=== PATIENT | female | born 2000 | race Two or more races ===

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

== ENCOUNTER 2020-03-05 14:23 | Emergency (ER) | payer MEDICAID ==
[~2020-03-05] VITALS: Ht 154.9 cm; Wt 90.8 kg
[2020-03-05 14:25] VITALS: BP 128/62
--- NOTE | 2020-03-05 14:55 | NUR ---
DISCHARGED FROM LOBBY AND EDUCATED ON COVID QUARANTINE UNTIL NEGATIVE TESTING, RETURN IF SYMPTOMS WORSEN (SOB)
== END 2020-03-05 15:00 | disposition home or self-care (01) ==
LOC: ED 14:53
DX: J06.9 Acute upper respiratory infection, unspecified (principal)
CPT/HCPCS: 87635; 99283

== ENCOUNTER 2020-05-25 15:41 | Emergency (ER) | payer BC, MEDICAID ==
[~2020-05-25] VITALS: Ht 154.9 cm; Wt 95.7 kg
[2020-05-25 16:45] LABS: MICROSCOPIC INDICATED
[2020-05-25 16:57] LABS: BASOPHILS % (AUTO) 0 % (0-1); EOSINOPHILS % (AUTO) 0 % (1-7); LYMPHOCYTES % (AUTO) 16 % (22-44); MEAN CORPUSCULAR HEMOGLOBIN 29.5 pg (27.0-34.8); MEAN CORPUSCULAR HGB CONC 34.1 g/dL (32.4-35.8); MEAN PLATELET VOLUME 8.2 fL (7.4-10.4); MONOCYTES % (AUTO) 10 % (2-9); NEUTROPHILS % (AUTO) 74 % (42-75); PLATELET COUNT 245 x10^3/uL (130-400); RED BLOOD COUNT 5.01 x10^6/uL (3.82-5.3); RED CELL DISTRIBUTION WIDTH 13.7 % (9.6-15.2)
--- NOTE | 2020-05-25 17:00 | NUR ---
AUTOMOTIVE SERVICE WRITER: PT TO ROOM FROM LOBBY
[2020-05-25 17:03] LABS: ALBUMIN 3.7 g/dL (3.4-5.0); ANION GAP 6 mmol/L (5-15); CALCIUM 8.7 mg/dL (8.5-10.1); CHLORIDE 111 mmol/L (98-107)
[2020-05-25 17:08] LABS: MD NO
[2020-05-25 17:12] LABS: ALANINE AMINOTRANSFERASE 21 U/L (12-78); ALKALINE PHOSPHATASE 114 U/L (45-117); BILIRUBIN,TOTAL 0.4 mg/dL (0.2-1.0); CREATININE 0.76 mg/dL (0.55-1.02); TOTAL PROTEIN 7.9 g/dL (6.4-8.2)
--- NOTE | 2020-05-25 18:47 | NUR ---
Stood at bedside as director financial planning for US tech during transvaginal US exam which completed at this time. Pt states she is okay and tolerated exam well. VS reassessed and cellphone brought to her per her request. Pt aware of wait for results and MD to come speak with her on those as well as plan of care.
--- NOTE | 2020-05-25 19:06 | NUR ---
Report given to RICK Jean and care transferred.
--- NOTE | 2020-05-25 19:07 | NUR ---
report received from Cydney CABRERA. transfer of care assumed
--- NOTE | 2020-05-25 19:12 | NUR ---
patient sitting up in bed; alert. RN in to introduce myself. patient has no needs at this time. i explained to patient that providers are waiting for US to result and then will have more information on plan of care from this point on. patient satisfied with this plan. safety maintained. will continue to monitor. FLACC 0
--- NOTE | 2020-05-25 20:25 | NUR ---
discharge instructions reviewed with patient. no further questions. no IV placed during this ER visit. steady gait in room. all personal belongings with patient on dc. FLACC 0 on departure
[2020-05-25 20:26] VITALS: BP 109/59
== END 2020-05-25 20:35 | disposition home or self-care (01) ==
LOC: ED 20:25
DX: R10.32 Left lower quadrant pain (principal); R19.7 Diarrhea, unspecified
CPT/HCPCS: 36415; 76830; 80053; 81001; 83690; 84703; 85025; 87086; 99284

== ENCOUNTER 2020-05-26 15:45 | Emergency (ER) | payer OTHER, MEDICAID ==
[~2020-05-26] VITALS: Ht 154.9 cm; Wt 93.7 kg
[2020-05-26 15:49] VITALS: BP 112/68
== END 2020-05-26 16:27 | disposition home or self-care (01) ==
LOC: ED 16:20
DX: U07.1 COVID-19 (principal); B34.9 Viral infection, unspecified; R05 Cough; R09.81 Nasal congestion; R94.31 Abnormal electrocardiogram [ECG] [EKG]
CPT/HCPCS: 93005; 99284; U0003

== ENCOUNTER 2020-06-10 16:04 | Emergency (ER) | payer OTHER, MEDICAID ==
[~2020-06-10] VITALS: Ht 154.9 cm; Wt 94.2 kg
[2020-06-10 16:19] VITALS: BP 120/68
--- NOTE | 2020-06-10 16:44 | NUR ---
PT ENDORSED TO BREAK RN.
--- NOTE | 2020-06-10 16:48 | NUR ---
BREAK RN: PT BROUGHT BACK TO TRIAGE FROM TRIAGE. PT STATED THAT SHE TESTED POSITIVE FOR COVID 19 ON 05/26. PT NEEDS A NOTE FOR EMPLOYER STATING THAT IT IS OK TO GO BACK TO WORK. PT STATED THAT SHE STILL DOES NOT HAVE HER SENSE OF SMELL LEFT, BUT DOES NOT HAVE ANY OTHER SYMPTOMS. MEGHANA ACEVEDO AT BEDSIDE OF COVID SWAB.
--- NOTE | 2020-06-10 17:12 | NUR ---
bREAK rn- DC INSTRUCTIONS REVIEWED
== END 2020-06-10 17:14 | disposition home or self-care (01) ==
LOC: ED 17:05
DX: R43.8 Other disturbances of smell and taste (principal); Z20.822 Contact with and (suspected) exposure to COVID-19
CPT/HCPCS: 99283; U0003

== ENCOUNTER 2020-09-01 15:47 | Emergency (ER) | payer OTHER, MEDICAID ==
[~2020-09-01] VITALS: Ht 154.9 cm; Wt 99.0 kg
[2020-09-01] MEDS ORDERED: CEFTRIAXONE 1,000 MG IM ONE (16:30)
[2020-09-01] MEDS ORDERED: DOXYCYCLINE 100MG TABLET PO ONE (16:30)
--- NOTE | 2020-09-01 17:10 | NUR ---
Assumed care of pt at this time. This is a 20 yo female who presents to the ER c/o itching and vaginal odor x a few days. Pt reports that she had unprotected sex with a friend and was then notified he tested positive for chlamydia. Pt denies pain with urination. Urine sample provided and sent to lab at this time. Pt AO x 4. Skin pink, warm and dry. Resp even and unlabored. Call light within reach. Will cont to monitor pt.
[2020-09-01 17:27] LABS: HCG UR SG 1.017 (1.003-1.030)
[2020-09-01 17:32] LABS: MICROSCOPIC INDICATED
[2020-09-01] MEDS ORDERED: DOXYCYCLINE 100MG TABLET ONE (17:37)
[2020-09-01] MEDS ORDERED: CEFTRIAXONE 1,000 MG ONE (17:37)
[2020-09-01] MEDS ORDERED: LIDOCAINE-MPF 1%, 2ML ONE (17:38)
--- NOTE | 2020-09-01 18:23 | NUR ---
Pt currently resitng on yari. No acute distress noted at this time. Pt AO x 4, chatting pleasantly with RN. Pt medicated as ordered. Pt verbalizes understanding of medication. Pt aware we are waiting for DC instructions. PT denies other needs at this time. Call light within reach. Will cont to monitor pt.
--- NOTE | 2020-09-01 19:00 | NUR ---
Report from Myrna CABRERA
[2020-09-01 19:19] VITALS: BP 102/72
--- NOTE | 2020-09-01 19:21 | NUR ---
Patient given discharge instructions and they have confirmed that they understand the instructions. Patient ambulatory with steady gait.
== END 2020-09-01 19:24 | disposition home or self-care (01) ==
LOC: ED 18:12
DX: R30.0 Dysuria (principal)
CPT/HCPCS: 81001; 81025; 87086; 87491; 87591; 96372; 99283; J0696